=== PATIENT | female | born 1960 | race Caucasian/White ===

== ENCOUNTER → 2022-02-18 | Outpatient (CLI) | payer OTHER ==
--- NOTE | 2022-02-18 11:03 | CA ---
Exercise Stress Test Report Name: Kayy Simpson Exam Date: 02/18/2022 10:17 Exam Location: [place] Stress Ht (in): 70 Wt (lb): 191 BSA: 2.05 Ordering Phys: Gertrudis Gaytan DO Referring Phys: Natalie Fernando PAC Technologist: Haresh Blanchard Age: 61 Gender: F : 1960 Procedure CPT: Indications: R07.9 chest pain R94.31 Abn EKG ICD-10 Codes: Patient History: CHEST PAIN, DIFFICULTY IN BREATHING, NUMBNESS IN FACE/NECK, CURRENT SMOKER 1 PPD X 47 YEARS Medications: NONE,,,,, Meds past 24 hrs: Pretest Chest Pain: STRESS TEST Speedy Protocol Exercise Duration (min:sec): 04:[address] Depressions (mm): Angina Score: Barnes Score: Resting HR (bpm): 83 Peak HR (bpm): 151 Resting BP (mmHg): 123 / 58 Peak BP (mmHg): 208 / 44 MPHR: 161 Target HR: 137 % MPHR: 94 METS: 7.1 Total Dose: Peak Dose: Atropine: Double Product: 43318 BP Response: Stress Termination: TARGET HR REACHED/MAX EXERTION Stress Symptoms: DIFFICULTY IN BREATHING Stress Summary: ECG ANALYSIS Resting ECG: Stress ECG: CONCLUSIONS Baseline EKG revealed normal sinus rhythm with isolated PVCs patient walked for 5 minutes and achieved a maximal heart rate of 142 bpm which is more than 85% of predicted maximal. She developed fatigue and shortness of breath but did not have angina. EKG did not reveal any new ST segment changes to indicate ischemia. By EKG criteria this is a unremarkable stress test with limited exercise capacity. The nuclear scan results which are more pertinent will be reported by the radiologist Dr. Kevin Eason MD (Electronically Signed) Final Date: 18 February 2022 11:03
--- NOTE | 2022-02-18 13:54 | NM ---
EXAMINATION TYPE: NM stress cardiolite complete DATE OF EXAM: 02/18/2022 COMPARISON: NONE HISTORY: History of tobacco use presents with chest pain, abnormal EKG, and difficulty in breathing. TECHNIQUE: After the intravenous administration of 9.6 mCi Tc 99m Sestamibi - Rest images obtained 4 5 minutes post injection. The patient exercised using a VIBHA protocol and 1 minute prior to peak e xercise was injected with 24.7 mCi Tc 99m Sestamibi - Stress images obtained 40 minutes post injectio n. FINDINGS: Targeted heart rate was achieved during performance of the study. Review of stress and rest SPECT jumana ges demonstrates poor uptake in stress and rest images involving the inferior and septal left ventric ular barroso. No definitive reversible ischemia. Gated analysis shows an estimated left ventricular eje ction fraction of 60 %. IMPRESSION: Suboptimal study. No scintigraphic evidence for reversible ischemia
== END | disposition home or self-care (01) ==
LOC: RADNMMAIN 08:42
PROVIDERS: ATTEND Family Medicine
DX: I49.3 Ventricular premature depolarization (principal); R06.02 Shortness of breath; R53.83 Other fatigue; R07.9 Chest pain, unspecified; R94.31 Abnormal electrocardiogram [ECG] [EKG]
CPT/HCPCS: 93017; 78452; A9500

== ENCOUNTER → 2022-02-22 | Outpatient (CLI) | payer OTHER ==
--- NOTE | 2022-02-26 20:20 | MM ---
Reason for Exam: Screening (asymptomatic). Last mammogram was performed 8 year(s) and 6 month(s) ago. Patient History: Menarche at age 16. First Full-Term at age 18. Postmenopausal. Progesterone, from age 30 until age 31. Mother had breast cancer, age 80. Risk Values: Lisa 5 year model risk: 2.4%. NCI Lifetime model risk: 12.4%. Tissue Density: There are scattered fibroglandular densities. Findings: Analyzed By CAD. There is underlying low density nodularity on the right that becomes more apparent on 3-D images. One of these may correspond to a tortuous blood vessel posteriorly. Density may have been present previously but more difficult to see without 3-D images. A benign etiology is suspected at 6 month follow-up recommended. Otherwise, no significant change. Overall Assessment: Probably benign, BI-RAD 3 Management: Diagnostic Mammogram of the right breast in 6 months. 1. Patient should continue monthly self breast exams. 2. A clinical breast exam by your physician is recommended on an annual basis. 3. This exam should not preclude additional follow-up of suspicious palpable abnormalities. Electronically signed and approved by: Paris Haney M.D. Radiologist
== END | disposition home or self-care (01) ==
LOC: RADMAMWWP 08:18
PROVIDERS: ATTEND Family Medicine
DX: Z12.31 Encounter for screening mammogram for malignant neoplasm of breast (principal); Z78.0 Asymptomatic menopausal state; Z80.3 Family history of malignant neoplasm of breast
CPT/HCPCS: 77063; 77067